=== PATIENT | female | born 1955 | race Caucasian/White ===

== ENCOUNTER → 2016-10-12 | Outpatient (CLI) | payer OTHER, BC ==
--- NOTE | 2016-10-12 12:16 | RAD ---
Exam performed: 2 views of the chest. Indication: DRY COUGH FOR SEVERAL MTHS Date of Service:10/12/2016 2:00 AM . Comparison : 2 views chest from 06/04/12 Findings: PA and lateral radiographs of the chest reveal a normal cardiomediastinal contour. The lungs are clear. No pleural fluid is seen. The visualized osseous structures are unremarkable. Impression: Radiographically normal chest.
== END | disposition home or self-care (01) ==
LOC: DXRADRC 11:59
PROVIDERS: ATTEND Nurse Practitioner Family
DX: R05 Cough (principal)
CPT/HCPCS: 71020

== ENCOUNTER → 2016-10-18 | Outpatient (CLI) | payer OTHER, BC ==
--- NOTE | 2016-10-18 09:48 | RAD ---
DATE: 10/18/2016 EXAM: MAMMO [facility]EL[facility] SCREENING BILATERAL HISTORY: Routine screening COMPARISON: 02/16/2015 This study was interpreted with the benefit of Computerized Aided Detection (CAD). FINDINGS: Breast Density: HETERO The breast parenchyma Is heterogeneously dense, which could reduce sensitivity of mammography. Breast parenchyma level C. There are no dominant suspicious masses, suspicious microcalcifications or evidence of architectural distortion. Intramammary lymph nodes identified in the bilateral breasts. IMPRESSION: Benign findings BI-RADS CATEGORY: 2 BENIGN FINDING RECOMMENDED FOLLOW-UP: 12M 12 MONTH FOLLOW-UP PQRS compliance statement: Patient information was entered into a reminder system with a target due date 10/18/2017 for the next mammogram. Mammography is a sensitive method for finding small breast cancers, but it does not detect them all and is not a substitute for careful clinical examination. A negative mammogram does not negate a clinically suspicious finding and should not result in delay in biopsying a clinically suspicious abnormality. "Our facility is accredited by the [employer] Mammography Program."
== END | disposition home or self-care (01) ==
LOC: MAMMO 07:51
PROVIDERS: ATTEND Nurse Practitioner Family
DX: Z12.31 Encounter for screening mammogram for malignant neoplasm of breast (principal)
CPT/HCPCS: 77063; G0202; 77067

== ENCOUNTER → 2017-08-06 | Outpatient (CLI) | payer BC, OTHER ==
--- NOTE | 2017-08-07 08:21 | RAD ---
Lumbar spine radiograph 08/06/2017 Indication lower back pain. Comparison: None available. Technique: 3 views of the lumbosacral spine are provided. Findings: Alignment of the lumbar spine is normal. Lateral view is mildly rotated, limiting evaluation. Coronal alignment is normal. Vertebral body heights are maintained. No acute fracture is visualized. There is disc height loss at L4-L5 and L5-S1. There is mild to moderate facet arthropathy in the lower lumbar spine. Impression: No acute fracture or malalignment of the lumbar spine.
== END | disposition home or self-care (01) ==
LOC: RAD 17:52
PROVIDERS: ATTEND Nurse Practitioner Family
DX: M54.16 Radiculopathy, lumbar region (principal); M54.5 Low back pain
CPT/HCPCS: 72100

== ENCOUNTER → 2017-10-21 | Outpatient (CLI) | payer OTHER, BC ==
--- NOTE | 2017-10-21 10:09 | RAD ---
EXAM: MAMMO AVELINA SCREENING BILATERAL. HISTORY: Screening. COMPARISON: 10/18/2016, 02/16/2015, 02/10/2014. FINDINGS: 2-D and 3-D tomosynthesis mammograms were obtained of both breasts in the CC and MLO projections. Computer-aided detection (CAD) was utilized. The breast parenchyma shows scattered fibroglandular densities. Breast parenchyma level B. No dominant suspicious mass, suspicious microcalcifications, or architectural distortion is identified. IMPRESSION: No evidence of malignancy. BI-RADS CATEGORY: 1 NEGATIVE RECOMMENDED FOLLOW-UP: 12M 12 MONTH FOLLOW-UP PQRS compliance statement: Patient information was entered into a reminder system with a target due date for the next mammogram. Mammography is a sensitive method for finding small breast cancers, but it does not detect them all and is not a substitute for careful clinical examination. A negative mammogram does not negate a clinically suspicious finding and should not result in delay in biopsying a clinically suspicious abnormality. "Our facility is accredited by the [employer] Mammography [employer]."
== END | disposition home or self-care (01) ==
LOC: MAMMO 07:42
PROVIDERS: ATTEND Nurse Practitioner Family
DX: Z12.31 Encounter for screening mammogram for malignant neoplasm of breast (principal)
CPT/HCPCS: 77063; 77067

== ENCOUNTER → 2017-11-28 | Outpatient (CLI) | payer OTHER, BC ==
--- NOTE | 2017-11-28 15:43 | RAD ---
Bone densitometry scan, 11/28/2017: HISTORY: Ovarian failure The lumbar spine and right hip were examined utilizing a DEXA technique. The bone mineral density in the lumbar spine as measured from the L1-L4 levels is 1.02 g/sq cm. This yields a T score of -1.3 compatible with osteopenia. The lumbar spine T score on the previous study of 11/28/2015 was -1.0. The total T score at the right hip is -0.4 which is in the normal range. The right hip T score on the previous study was -0.3. IMPRESSION: 1. Mild osteopenia has developed in the lumbar spine. 2. Normal right hip bone mineral density Electronically signed by: Kavon Zhao MD (11/28/2017 3:41 PM) [facility]
== END | disposition home or self-care (01) ==
LOC: DXRAD 11:14
PROVIDERS: ATTEND Physician Assistant Medical
DX: M85.88 Other specified disorders of bone density and structure, other site (principal)
CPT/HCPCS: 77080

== ENCOUNTER → 2019-08-20 | Outpatient (CLI) | payer MEDICARE, OTHER ==
--- NOTE | 2019-08-24 16:21 | RAD ---
BILATERAL SCREENING MAMMOGRAM, 3-D History: Routine screening. Comparison: 02/16/2015, 10/18/2016, 10/21/2017 mammographic exams. Technique: MLO and CC digital tomosynthesis (3D) images obtained. Radiologist reviewed these images on dedicated workstation. Findings: Breast Tissue Density B : There are scattered areas of fibroglandular density. There are no dominant masses, suspicious microcalcifications, or architectural distortion. IMPRESSION: No mammographic evidence of malignancy. Recommend routine screening. BI-RADS category 1: Negative. The images were reviewed with computer-aided detection. Patient information is entered into reminder system with a target due date for the next screening mammogram. Mammography is the most sensitive method for finding small breast cancers, but it does not detect them all and is not a substitute for careful clinical examination. A negative mammogram does not negate a clinically suspicious finding and should not result in delay in biopsying a clinically suspicious abnormality. "Our facility is accredited by the [employer] Mammography Program." Electronically signed by: Tank Yap MD (08/24/2019 4:18 PM) [facility]
== END | disposition home or self-care (01) ==
LOC: MAMMO 09:19
PROVIDERS: ATTEND Physician Assistant Medical
DX: Z12.31 Encounter for screening mammogram for malignant neoplasm of breast (principal)
CPT/HCPCS: 77063; 77067

== ENCOUNTER → 2019-12-15 | Outpatient (CLI) | payer MEDICARE, OTHER ==
--- NOTE | 2019-12-15 15:29 | RAD ---
INDICATION: Osteoporosis screening. Postmenopausal follow-up COMPARISON: 11/28/2017 TECHNIQUE: Bone densitometry was performed through the lumbar spine and proximal femur. FINDINGS: Lumbar Spine: BMD: 1.03 T-Score: -1.3 Decreased by 9 percent from baseline but similar to 2018. Proximal Femur: BMD: 0.88 T-Score: -0.6 Decreased by 9 percent from baseline and decreased by 3 percent from 2018 IMPRESSION: 1. Lumbar spine falls within the osteopenic range. 2. Proximal femur falls within the normal range. Electronically signed by: Yuval Long MD (12/15/2019 3:25 PM) [id number]
== END ==
LOC: DXRAD 09:26
PROVIDERS: ATTEND Physician Assistant Medical
DX: M85.88 Other specified disorders of bone density and structure, other site (principal)
CPT/HCPCS: 77080

== ENCOUNTER → 2020-08-22 | Outpatient (CLI) | payer MEDICARE, OTHER ==
--- NOTE | 2020-08-23 09:53 | RAD ---
DATE: 08/22/2020 10:40 AM EXAM: MAMMO AVELINA SCREENING BILATERAL HISTORY: Screening COMPARISON: 08/20/2019, 10/21/2017 Bilateral CC and MLO views of the breasts were performed. Bilateral breast tomosynthesis was performed in CC and MLO projections. This study was interpreted with the benefit of Computerized Aided Detection (CAD). FINDINGS: Breast Density: SCATTERED The breast parenchyma shows scattered fibroglandular densities. Breast parenchyma level B No suspicious masses, microcalcifications or architectural distortion is present to suggest malignancy in either breast. The visualized axillae are unremarkable. IMPRESSION: No mammographic evidence of malignancy. BI-RADS CATEGORY: 1 NEGATIVE RECOMMENDED FOLLOW-UP: 12M 12 MONTH FOLLOW-UP Annual screening mammography is recommended, unless clinically indicated sooner based on symptoms or change in physical exam. PQRS compliance statement: Patient information was entered into a reminder system with a target due date for the next mammogram. Mammography is a sensitive method for finding small breast cancers, but it does not detect them all and is not a substitute for careful clinical examination. A negative mammogram does not negate a clinically suspicious finding and should not result in delay in biopsying a clinically suspicious abnormality. "Our facility is accredited by the [employer] Mammography Program."
== END ==
LOC: MAMMO 10:32
PROVIDERS: ATTEND Physician Assistant Medical
DX: Z12.31 Encounter for screening mammogram for malignant neoplasm of breast (principal)
CPT/HCPCS: 77063; 77067

== ENCOUNTER → 2021-08-31 | Outpatient (CLI) | payer MEDICARE, OTHER ==
--- NOTE | 2021-08-31 12:52 | RAD ---
BILATERAL DIGITAL SCREENING 2-D AND 3-D MAMMOGRAM INDICATION: Routine screening. COMPARISON: August 22, 2020 August 20, 2019 and October 18, 2016. Interpretation was made using CAD. FINDINGS: Breast Density: There are scattered areas of fibroglandular density. RIGHT BREAST: No suspicious masses, calcifications or areas of architectural distortion are seen. LEFT BREAST: No suspicious masses, calcifications or areas of architectural distortion are seen. IMPRESSION: 1. No imaging evidence of malignancy. ASSESSMENT: BI-RADS 1. Negative. RECOMMENDATION: Routine annual screening mammogram. The facility will notify the patient of the results via mail. Patient information was entered into a reminder system with a target due date for the next mammogram. A reminder letter will be generated by the facility. Electronically signed by: Bridget Bneavides MD (08/31/2021 12:50 PM) [id number]
== END ==
LOC: MAMMO 08:43
PROVIDERS: ATTEND Physician Assistant Medical
DX: Z12.31 Encounter for screening mammogram for malignant neoplasm of breast (principal)
CPT/HCPCS: 77063; 77067